=== PATIENT | male | born 1995 | race African-American/Black ===

== ENCOUNTER 2017-01-19 12:02 | Emergency (ER) | payer MEDICAID ==
[~2017-01-19] VITALS: Ht 177.8 cm; Wt 70.3 kg
[~2017-01-19 12:02] MED LIST: ACET-2154 PO
--- NOTE | 2017-01-19 12:35 | NUR ---
Pt ambulatory to bed 1 , pt waiting to be seen.
--- NOTE | 2017-01-19 13:24 | NUR ---
A/O x 4, vss, nad noted, c/o foreign object stuck in a back of his throat, speech clear, no SOB. Taken to CT per MD order.
--- NOTE | 2017-01-19 14:17 | NUR ---
Patient discharged home in stable conditon. Written and verbal after care instructions given. Patient verbalizes understanding of instructions.
[2017-01-19 14:19] VITALS: BP 120/74
== END 2017-01-19 14:21 | disposition home or self-care (01) ==
LOC: ER 12:02
DX: T18.128A Food in esophagus causing other injury, initial encounter (principal); F07.81 Postconcussional syndrome; R51 Headache; X58.XXXA Exposure to other specified factors, initial encounter; Y93.89 Activity, other specified; Y99.8 Other external cause status; Y92.89 Other specified places as the place of occurrence of the external cause
CPT/HCPCS: 70450; 70490; 99284; A4663

== ENCOUNTER 2018-04-13 23:30 | Emergency (ER) | payer MEDICAID, OTHER ==
[~2018-04-13] VITALS: Ht 175.3 cm; Wt 73.0 kg
[2018-04-14] MEDS ORDERED: ONDANSETRON IV *ER 4 MG/2 ML VIAL IV ONE (00:10)
[2018-04-14] MEDS ORDERED: MORPHINE SULFATE 2 MG/1 ML DISP.SYRIN IV ONE (00:10)
[2018-04-14] MEDS ORDERED: PANTOPRAZOLE SODIUM IV 40 MG in IV DEXTROSE 5% 100 ML IV ONE (00:15)
[2018-04-14] MEDS ORDERED: IV NS 1000 ML 1,000 ML IV ONE (00:15)
[2018-04-14] MEDS ORDERED: DEXAMETHASONE SOD PHOSPHATE 4 MG INJ IV ONE (00:15)
[2018-04-14] MEDS ORDERED: diphenhydrAMINE 50 MG/1 ML VIAL IV ONE (00:15)
[2018-04-14] MEDS ORDERED: diphenhydrAMINE 50 MG/1 ML VIAL ONE (00:22)
[2018-04-14] MEDS ORDERED: DEXAMETHASONE SOD PHOSPHATE 10 MG INJ ONE (00:22)
[2018-04-14] MEDS ORDERED: ONDANSETRON 4 MG/2 ML VIAL ONE (00:22)
[2018-04-14 00:34] LABS: BASOPHILS % (AUTO) 0.6 % (0.0-2.0); EOSINOPHILS % (AUTO) 0.1 % (0.0-7.0); HEMATOCRIT 42.6 % (36.7-47.1); HEMOGLOBIN 14.4 g/dL (12.5-16.3); LYMPHOCYTES # (AUTO) 0.9 K/uL (20.0-40.0); MEAN CORPUSCULAR HEMOGLOBIN 26.1 uug (23.8-33.4); MEAN CORPUSCULAR HGB CONC 34 g/dL (32.5-36.3); MEAN CORPUSCULAR VOLUME 77.1 fL (73.0-96.2); MONOCYTES # (AUTO) 0.3 K/uL (2.0-10.0); MONOCYTES % (AUTO) 4.5 % (0.0-11.0); NEUTROPHILS # (AUTO) 4.5 K/uL (1.8-8.9); NEUTROPHILS % (AUTO) 78.8 % (38.5-71.5); PLATELET COUNT (AUTO) 218 K/uL (152-348); RED BLOOD CELL COUNT(AUTO) 5.53 MIL/uL (4.06-5.63); WHITE BLOOD COUNT (AUTO) 5.7 K/uL (3.6-10.2)
[2018-04-14] MEDS ORDERED: MORPHINE SULFATE 4 MG/1 ML DISP.SYRIN ONE (00:44)
[2018-04-14] MEDS ORDERED: PANTOPRAZOLE SODIUM 40 MG VIAL ONE (00:44)
[2018-04-14 00:46] LABS: BILIRUBIN,TOTAL 0.7 mg/dL (0.2-1.0); CREATININE 1.2 mg/dL (0.6-1.3); POTASSIUM 3.8 mmol/L (3.5-5.1); TOTAL PROTEIN, SERUM 7.4 g/dL (6.4-8.2)
--- NOTE | 2018-04-14 00:49 | NUR ---
Patients mother states " I do not want morphine given to him. I do not want any habit forming medication". Patient provided with an explanation of the medication and provided education on risks/benefits. Patient states " Ill take the morphine. I am in pain.".
--- NOTE | 2018-04-14 01:00 | NUR ---
PT IN [facility] IN ROUTE TO CT WITH TRANSPORTER AND PT'S MOTHER FOLLOWING
--- NOTE | 2018-04-14 01:14 | NUR ---
PT BACK FROM CT IN [facility] WITH TRANSPORTER AND PT'S MOTHER
--- NOTE | 2018-04-14 02:38 | NUR ---
Patient discharged to home in stable conditon. Written and verbal after care instructions given. Patient verbalizes understanding of instructions. Pt's peripheral IV was removed. Patient able to ambulate unassisted with a steady gait. Patient left with all personal belongings.
[2018-04-14 02:44] VITALS: BP 107/55
== END 2018-04-14 02:38 | disposition home or self-care (01) ==
LOC: ER 23:32
DX: R51 Headache (principal); Z91.018 Allergy to other foods; Z79.899 Other long term (current) drug therapy
CPT/HCPCS: 36415; 70450; 80053; 85025; 96365; 96366; 96375; 99285; A4663; C9113; J1100; J1200; J2270; J2405; J7030; J7060

== ENCOUNTER 2018-04-23 03:01 | Emergency (ER) | payer MEDICAID ==
[~2018-04-23] VITALS: Ht 175.3 cm; Wt 72.6 kg
[2018-04-23] MEDS ORDERED: ASPIRIN 325 MG TABLET PO ONE (03:15)
--- NOTE | 2018-04-23 03:15 | NUR ---
PT AMBULATED TO ER WITH C/O CHEST PAIN/PRESSURE TOWARDS LEFT SIDE THAT STARTED 3 HRS AGO. PT DENIES SOB. SAO2 100% RA. PT DENIES GI/ DISTRESS. PT AAOX4. VSS. NAD NOTED.
[2018-04-23] MEDS ORDERED: ASPIRIN 325 MG TABLET ONE (03:19)
--- NOTE | 2018-04-23 04:06 | NUR ---
DPatient discharged to home in stable conditon. Written and verbal after care instructions given. Patient verbalizes understanding of instructions. Pt ambulated out of ER in steady gait accompanied by mother. All belongings with pt. VSS. No acute distress noted.
[2018-04-23 04:07] VITALS: BP 131/81
== END 2018-04-23 04:08 | disposition home or self-care (01) ==
LOC: ER 03:02
DX: R07.89 Other chest pain (principal); Z91.018 Allergy to other foods; Z79.891 Long term (current) use of opiate analgesic
CPT/HCPCS: 36415; 71045; 84484; 93005; 99285; A4663; 70030-TC